=== PATIENT | female | born 1970 | race Hispanic/Latino ===

== ENCOUNTER 2024-05-30 12:39 | Emergency (ER) | payer BC, OTHER ==
[2024-05-30] MEDS ORDERED: FENTANYL CITR 100 MCG/2 ML ONE (13:32)
[2024-05-30] MEDS ORDERED: KETOROLAC 30 MG/ML INJ ONE (13:32)
[2024-05-30] MEDS ORDERED: NA CHLORIDE 0.9% 0 ML ONE (13:33)
[2024-05-30] MEDS ORDERED: NA CHLORIDE 0.9% 1,000 ML ONE (13:37)
[2024-05-30 13:49] LABS: Absolute Lymphocytes (CBC) 0.5 K/uL (0.7-4.9); Absolute Monocytes 0.6 K/uL (0.1-1.3); Absolute Neutrophil 4.7 K/uL (1.8-8.0); Basophils % 0.2 % (0-1.3); Eosinophils % 0.2 % (0-4.4); Hematocrit 41.2 % (36.0-45.0); Hemoglobin 14.2 g/dL (12.0-15.0); Lymphocytes % 8.6 % (15.3-44.8); MCH 30.9 pg (27.0-35.0); MCHC 34.5 g/dL (32.0-36.0); MCV 89.6 fL (80-100); MPV 7.3 fL (7.6-11.3); Monocytes % 9.8 % (3.3-12.3); Neutrophils % 81.2 % (41.7-73.7); Nucleated Red Blood Cells % 0.1 % (0-0); Platelets 218 thou/uL (152-406); Red Cell Distribution Width 13.5 % (12.1-15.2)
[2024-05-30 13:58] LABS: PT Prothrombin Time 12.9 SECONDS (10-13.0); PTT, Activated Partial Thromb 33.4 SECONDS (27.2-37.4); Protime INR 1.14
--- NOTE | 2024-05-30 14:04 | RAD REPORT ---
EXAM: Chest Single View HISTORY: 54 years Female COUGH COMPARISON: 06/08/2010 FINDINGS: LUNGS/PLEURA: The lungs are clear. No pleural effusions or pneumothorax. No pulmonary edema. CARDIAC/MEDIASTINUM: The cardiac silhouette is within normal limits. UPPER ABDOMEN: No significant abnormality. BONES: No acute abnormality. LINES/TUBES/OTHER: N/A IMPRESSION: No evidence of acute cardiopulmonary disease. No significant change from prior.
[2024-05-30 14:07] LABS: Influenza A Ag Negative; Influenza B Ag Negative; SARS-CoV-2 Antigen Rapid Res Negative (Negative)
[2024-05-30 14:07] LABS: Albumin 3.7 g/dL (3.4-5.0); Albumin/Globulin Ratio 1.1 (1.1-1.8); Anion Gap 8.4 mEq/L (5.0-15.0); Bilirubin Direct 0.2 mg/dL (0-0.2); Bilirubin Indirect, Calculated 0.4 mg/dL (0.2-0.8); Bilirubin Total 0.6 mg/dL (0.2-1.0); Globulin 3.4 g/dL (2.3-3.5); Potassium 3.4 mEq/L (3.5-5.1); Protein, Total 7.1 g/dL (6.4-8.2); Troponin High Sensitivity 3.3 pg/mL (<58.9)
--- NOTE | 2024-05-30 14:59 | ER ---
Nurse's Notes [facility] Name: Luann Harkins Age: 54 yrs Sex: Female : 1970 Arrival Date: 05/30/2024 Time: 12:39 Bed 16 Private MD: Diagnosis: Syncope Presentation: 05/30 12:46 Chief complaint: Patient states: Syncopal episode that occurred while visiting mother ss in hospital. Pt reports she woke up not feeling well this morning. Mother was diagnosed with COVID yesteray. Coronavirus screen: Client denies travel out of the [place] in the last 14 days. Ebola Screen: Patient denies exposure to infectious person. Patient denies travel to an Ebola-affected area in the 21 days before illness onset. Initial Sepsis Screen: Does the patient meet any 2 criteria? No. Patient's initial sepsis screen is negative. Does the patient have a suspected source of infection? No. Patient's initial sepsis screen is negative. Risk Assessment: Do you want to hurt yourself or someone else? Patient reports no desire to harm self or others. Onset of symptoms was May 30, 2024. 12:46 Acuity: LIZET 3 ss 12:46 Method Of Arrival: Ambulatory ss 12:51 Chief complaint: Patient states: Sore throat, ARMAS started yesterday. Now has cough, ll1 nausea and near syncope events today. Mom is covid positive. Historical: - Allergies: 12:52 No Known Allergies; ll1 - PMHx: 12:52 fast HR; ll1 - PSHx: 12:52 cardiac ablation x 2; hysterectomy; knee surgery; ll1 - Immunization history:: Adult Immunizations up to date. - Infectious Disease History:: Denies. - Social history:: Smoking status: Patient denies any tobacco usage or history of. - Family history:: not pertinent. - Hospitalizations: : No recent hospitalization is reported. Screenin:02 [facility] ED Fall Risk Assessment (Adult) History of falling in the last 3 months, db including since admission No falls in past 3 months (0 pts) Confusion or Disorientation No (0 pts) Intoxicated or Sedated No (0 pts) Impaired Gait No (0 pts) Mobility Assist Device Used No (0 pt) Altered Elimination No (0 pt) Score/Fall Risk Level 0 - 2 = Low Risk Oriented to surroundings, Maintained a safe environment. Abuse screen: Denies threats or abuse. Denies injuries from another. Nutritional screening: No deficits noted. Tuberculosis screening: No symptoms or risk factors identified. Assessment: 14:00 Reassessment: Patient appears in no apparent distress at this time. Patient and/or db family updated on plan of care and expected duration. Pain level reassessed. Patient is alert, oriented x 3, equal unlabored respirations, skin warm/dry/pink. General: Appears in no apparent distress. comfortable, Behavior is calm, cooperative. Pain: Denies pain. Neuro: Level of Consciousness is awake, alert, obeys commands, Oriented to person, place, time, situation. Respiratory: Airway is patent Respiratory effort is even, unlabored, Respiratory pattern is regular, symmetrical. 15:13 Reassessment: Patient appears in no apparent distress at this time. Patient and/or db family updated on plan of care and expected duration. Pain level reassessed. Patient is alert, oriented x 3, equal unlabored respirations, skin warm/dry/pink. Patient states feeling better. Patient states symptoms have improved. Vital Signs: 12:46 Pulse 86; Pulse Ox 98% ; ss 12:53 BP 96 / 54; Pulse 89; Resp 18; Temp 99.3; Pulse Ox 99% on R/A; Weight 68.04 kg; Height ll1 5 ft. 4 in. ; Pain 5/10; 14:00 BP 113 / 68; Pulse 83; Resp 16; Pulse Ox 96% on R/A; db 15:00 BP 118 / 69; Pulse 83; Resp 16; Pulse Ox 99% on R/A; db 12:53 Body Mass Index 25.75 (68.04 kg, 162.56 cm) ll1 12:53 Pain Scale: Adult ll1 ED Course: 12:41 Patient arrived in ED. rn 12:41 Malcolm Storey MD is Attending Physician. rn 12:45 Arm band placed on Patient placed in an exam room, on a stretcher. ll1 12:49 Triage completed. ss 12:59 XRAY Chest (1 view) In Process Unspecified. EDMS 13:09 Kayy Hodges, RN is Primary Nurse. db 13:40 Initial lab(s) drawn, by ED staff, sent to lab. Inserted saline lock: 20 gauge in right ty forearm, using aseptic technique. Blood collected. Flushed with 10 mL NS. 15:12 Patient has correct armband on for positive identification. Bed in low position. Call db light in reach. Side rails up X 1. Provided Education on: DISCHARGE AND FOLLOWUP. community mental health worker on. Pulse ox on. NIBP on. Warm blanket given. Pillow given. 15:13 No provider procedures requiring assistance completed. IV discontinued, intact, db bleeding controlled, No redness/swelling at site. Administered Medications: 13:49 Drug: NS 0.9% IV 1000 ml IV at 1000 ml once; to be given as a bolus over 60 minutes db Route: IV; Rate: 1000 ml; Site: right forearm; 15:14 Follow up: Response: No adverse reaction; IV Status: Completed infusion; IV Intake: db 1000ml Medication: 15:13 VIS not applicable for this client. db Intake: 15:14 IV: 1000ml; Total: 1000ml. db Outcome: 14:58 Discharge ordered by . rn 15:13 Discharged to home ambulatory, with family, db 15:13 Condition: stable 15:13 Discharge instructions given to patient, family, Instructed on discharge instructions, follow up and referral plans. 15:14 Patient left the ED. db Signatures: Dispatcher [employer] EDMS Malcolm Storey MD MD rn Blanchard, Shelby, RN RN Brielle Palacio RN RN ll1 Kayy Hodges RN RN Enzo Limon
--- NOTE | 2024-05-30 14:59 | EDPHYS ---
Physician Documentation [facility] Name: Luann Harkins Age: 54 yrs Sex: Female : 1970 Arrival Date: 05/30/2024 Time: 12:39 Bed 16 Private MD: ED Physician Malcolm Storey HPI: 05/30 14:52 This 54 yrs old Female presents to ER via Ambulatory with complaints of rn Syncope. 14:52 The patient has experienced syncope. Onset: The symptoms/episode began/occurred just rn prior to arrival. Duration: This was a single episode. Associated injury: The patient did not suffer any apparent associated injury. Current symptoms: Currently, the patient is not experiencing any symptoms. The patient has not experienced similar symptoms in the past. Patient was here with family member who has COVID and being admitted to the hospital, she has not anything all day, stood up and got lightheaded, sat down and had syncopal episode, no trauma. Patient did not sustain any injuries, I caught her head prior to hitting wall. Denies any preceding chest pain. Does have mild cough and low-grade fever with malaise and decreased appetite. No shortness of breath. No abdominal pain.. Historical: - Allergies: 12:52 No Known Allergies; ll1 - PMHx: 12:52 fast HR; ll1 - PSHx: 12:52 cardiac ablation x 2; hysterectomy; knee surgery; ll1 - Immunization history:: Adult Immunizations up to date. - Infectious Disease History:: Denies. - Social history:: Smoking status: Patient denies any tobacco usage or history of. - Family history:: not pertinent. - Hospitalizations: : No recent hospitalization is reported. ROS: 14:52 Constitutional: Positive for fever ENT: Negative for injury, pain, and discharge, home care manager rn: Negative for chest pain, palpitations, and edema, Respiratory: Positive for cough, negative for shortness of breath Abdomen/GI: Negative for abdominal pain, nausea, vomiting, diarrhea, and constipation, MS/Extremity: Negative for injury and deformity, Skin: Negative for injury, rash, and discoloration, Neuro: Positive for generalized weakness Exam: 14:52 Constitutional: This is a well developed, well nourished patient who is awake, alert learning support assistant: Dry mucous membranes Cardiovascular: Regular rate and rhythm. No pulse deficits. Respiratory: No increased work of breathing, no retractions or nasal flaring. Abdomen/GI: Soft, non-tender MS/ Extremity: Pulses equal, no cyanosis. Neuro: Awake and alert, GCS 15 15:04 ECG was reviewed by the Attending Physician. rn Vital Signs: 12:46 Pulse 86; Pulse Ox 98% ; ss 12:53 BP 96 / 54; Pulse 89; Resp 18; Temp 99.3; Pulse Ox 99% on R/A; Weight 68.04 kg; Height ll1 5 ft. 4 in. ; Pain 5/10; 14:00 BP 113 / 68; Pulse 83; Resp 16; Pulse Ox 96% on R/A; db 15:00 BP 118 / 69; Pulse 83; Resp 16; Pulse Ox 99% on R/A; db 12:53 Body Mass Index 25.75 (68.04 kg, 162.56 cm) ll1 12:53 Pain Scale: Adult ll1 MDM: 12:41 Medical Screening Exam initiated rn 14:52 Differential Diagnosis: cardiac arrhythmia, emotional response, idiopathic syncope, rn vasovagal episode, Dehydration, COVID. Data reviewed: vital signs, nurses notes, lab test result(s), EKG, radiologic studies, plain films, and as a result, I will discharge patient. Counseling: I had a detailed discussion with the patient and/or guardian regarding the historical points, exam findings, and any diagnostic results supporting the discharge/admit diagnosis, lab results, radiology results, the need for outpatient follow up, to return to the emergency department if symptoms worsen or persist or if there are any questions or concerns that arise at home. Response to treatment: the patient's symptoms have markedly improved after treatment, and as a result, I will discharge patient. Special discussion: I discussed with the patient/guardian in detail that at this point there is no indication for admission to the hospital. It is understood, however, that if the symptoms persist or worsen the patient needs to return immediately for re-evaluation. ED course: Patient with dehydration, markedly improved after IV fluids. Blood pressure improved. No oxygen requirement. Troponin negative and ECG without ischemia. Patient most likely has viral syndrome such as COVID given her mother has COVID and they have been spending time together. Will discharge home with return precautions. I have personally reviewed all of the results, including but not limited to blood tests and imaging deemed necessary to safely discharge this patient at this time. All results given to and printed out for patient. I personally went over all the results with the patient and answered all questions. Patient will follow-up with PCP and or specialist as discussed. Return precautions given and understood.. 05/30 12:41 Order name: COVID-19 Ag + Flu A+B Ag; Complete Time: 14:27 rn 05/30 12:41 Order name: Basic Metabolic Panel; Complete Time: 14: rn 05/30 12:41 Order name: CBC with Diff; Complete Time: 13:59 rn 05/30 12:41 Order name: Hepatic Function; Complete Time: 14: rn 05/30 12:41 Order name: Protime (+inr); Complete Time: 13:59 rn 05/30 12:41 Order name: Ptt, Activated; Complete Time: 13:59 rn 05/30 12:41 Order name: Troponin High Sensitivity; Complete Time: 14: rn 05/30 12:42 Order name: BNP; Complete Time: 14: rn 05/30 12:41 Order name: XRAY Chest (1 view); Complete Time: 14: rn 05/30 12:41 Order name: EKG; Complete Time: 12:42 rn 05/30 12:41 Order name: Cardiac monitoring; Complete Time: 14: rn 05/30 12:41 Order name: EKG - Nurse/Tech; Complete Time: 13:27 rn 05/30 12:41 Order name: IV Saline Lock; Complete Time: 13:40 rn 05/30 12:41 Order name: Labs collected and sent; Complete Time: 13:40 rn 05/30 12:41 Order name: O2 Per Protocol; Complete Time: 13: rn 05/30 12:41 Order name: O2 Sat Monitoring; Complete Time: 13:40 rn EC:04 Rate is 87 beats/min. Rhythm is regular. QRS [place] is Normal. [place] interval is prolonged. rn QRS interval is normal. QT interval is normal. No Q waves. T waves are Normal. No ST changes noted. Clinical impression: 1st degree heart block. Interpreted by me. Reviewed by me. Administered Medications: 13:49 Drug: NS 0.9% IV 1000 ml IV at 1000 ml once; to be given as a bolus over 60 minutes db Route: IV; Rate: 1000 ml; Site: right forearm; 15:14 Follow up: Response: No adverse reaction; IV Status: Completed infusion; IV Intake: db 1000ml Disposition Summary: 05/30/24 14:58 Discharge Ordered Notes: Location: Home rn Problem: new rn Symptoms: have improved rn Condition: Stable rn Diagnosis - Syncope rn Followup: rn - With: Private Physician - When: As needed - Reason: Recheck today's complaints, Re-evaluation by your physician Discharge Instructions: - Discharge Summary Sheet rn - Syncope rn Forms: - Medication Reconciliation Form rn - Antibiotic churn driller helper - Prescription Opioid Use rn - Patient Portal Instructions rn - Leadership Thank You Letter rn Signatures: Dispatcher [employer] Malcolm Callejas MD MD rn Lewis, Lynsay RN RN ll1 Kayy Hodges RN RN db Corrections: (The following items were deleted from the chart) 12:42 12:42 PROBNP+C.LAB.BRZ ordered. EDMS EDMS
[2024-05-30 15:47] VITALS: BP 118/69; TEMP 99.3; O2SAT 99
--- NOTE | 2024-05-31 13:25 | EKG ---
Test Date: 2024-05-30 Test Time: 13:22:50 Color Expert: MEASUREMENT RESULTS: Intervals: Rate: 87 [place]: 216 QRSD: 102 QT: 362 QTc: 435 [place]: P: 31 [place]: 216 QRS: 22 T: 46 INTERPRETIVE STATEMENTS: Sinus rhythm with 1st degree AV block Cannot rule out Anterior infarct, age undetermined Abnormal ECG No previous ECG available for comparison Electronically Signed On 05-31-24 13:19:02 CDT by Nicholas Riggs
== END 2024-05-30 15:14 | disposition home or self-care (01) ==
LOC: ER 12:39
DX: R55 Syncope and collapse (principal); Z11.52 Encounter for screening for COVID-19
CPT/HCPCS: 93005; 85025; 80048; 36415; 85610; 80076; 85730; 84484; 83880; 71045; 96360; 99285; 87428; J3010; J7030; J7040